=== PATIENT | male | born 1965 | race Caucasian/White ===

== ENCOUNTER 2025-05-04 11:59 | Emergency (ER) | payer OTHER, SELFPAY ==
--- NOTE | 2025-05-04 12:08 | ED_ITS ---
HPI - Skin/Abscess/Foreign Bdy General Chief complaint: Skin/Abscess/Foreign Body Stated complaint: rash Time Seen by Provider: 05/04/25 12:04 Patient presents to [facility] with complaints no changes to rash noted to left shoulder, chest, upper back, and now on face. Patient reports this started 4-5 days ago and was evaluated somewhere 2 days ago and they believe that this was an infection and started him on doxycycline and mupirocin ointment. Patient has been taking this medication and rashes that were worse. Patient reports pain as feeling like there are burning and fire ants crawling all over this area. Patient has noted some mild blistering but this areas are gone and now have scabs. Denies any vision changes, voice changes, hearing changes, numbness or tingling in arm. Related Data Home Medications ?Medication ?Instructions ?Recorded ?Confirmed ?Last Taken ?Type atorvastatin 80 mg tablet mg 05/04/25 Unknown History doxycycline hyclate 100 mg capsule mg 05/04/25 Unknown History losartan 25 mg tablet mg 05/04/25 Unknown History mupirocin 2 % topical ointment topical 05/04/25 Unknown History Allergies Allergy/AdvReac Type Severity Reaction Status Date / Time No Known Allergies Allergy Verified 05/04/25 12:19 Review of Systems Constitutional: Constitutional: Reports as per HPI, Denies chills, Denies fatigue, Denies fever(s) and Denies weakness Eyes: Eyes: Reports no additional eye complaints ENT: Reports as per HPI, Denies dysphagia, Denies vertigo, Denies dizziness, Denies nasal congestion and Denies sore throat Cardiovascular: Cardiovascular: Reports no additional cardiovascular complaints Respiratory: Respiratory: Reports no additional respiratory complaints Gastrointestinal: Gastrointestinal: Reports no additional gastrointestinal complaints Genitourinary: Genitourinary: Reports no additional male genitourinary complaints Musculoskeletal: Musculoskeletal: Reports as per HPI, Denies arthralgias, Denies joint swelling and Denies muscle cramps Integumentary/Breasts: Skin/Breast: Reports as per HPI, Reports pruritus and Reports rash Neurologic: Reports as per HPI, Denies headache(s), Denies numbness and Denies weakness Psychiatric: Psychiatric: Reports no additional psychiatric complaints Endocrine: Endocrine: Reports no additional endocrine complaints Hematologic/Lymphatic: Hematologic/Lymphatic: Reports no additional hematologic/lymphatic complaints Allergic/Immunologic: Allergic/Immunologic: Reports no additional all ergic/immunologic complaints Exam Const: General: healthy appearing and no acute distress Nutritional Appearance: well nourished Orientation/consciousness: patient oriented x3 Limitations: no limitations HENMT: Head: normal to inspection Ears: external ears normal and TM's normal bilaterally Face/Nose/Sinus: Normal external nose present Face and sinus: normal facial exam and sinuses nontender Mouth: Yes Normal oral and palatal mucosa present and Yes lip normal Throat: posterior oropharynx normal Eyes: Conjunctivae: conjunctivae normal Pupils: Equal, round and reactive pupils present EOM: EOMs intact bilaterally Direct Ophthalmoscopy: no photophobia Neck: Neck: normal visual inspection and no lymphadenopathy Resp: Effort & Inspection: normal respiratory effort Auscultation: clear to auscultation bilaterally Cardio: Rate: regular rate Rhythm: regular rhythm Skin: General skin exam: normal color Rashes: rash noted Wounds: no wounds Other: Diffuse vesicular rash noted over left side of chest, left shoulder, left upper back, left neck, and left scalp. Noted some vesicles crusted with clear drainage. No active drainage or streaking noted Neuro: General: patient oriented x3 and moves all extremities Speech: normal speech Gait exam (Neuro): Normal gait present Psych: Mental Status: mental status grossly normal Affect: normal affect Attitude: cooperative Course Course Level of Care: Express Care Visit MDM - Skin/Abscess/Foreign Bdy MDM Narrative Medical decision making narrative: Spoke with patient about diagnosis, more than likely shingles in nature. Continue the antibiotics due to areas of crusting possible secondary bacterial infection. Educated patient on several worsening symptoms that would need return to the ER follow-up. Discharge instructions reviewed with patient, as well as provided in writing per nursing staff. The instructions also include specific and strict return/GO TO THE ER as well as f/u information. All questions have been answered, and the patient deny any further questions with discharge and discharge plan. Differential Diagnosis Differential diagnosis: Likely dermatophytosis, urticaria, cellulitis, insect bites, impetigo and contact dermatitis Medical Records Attestation: I reviewed the patient's medical records. Discharge Plan Discharge Clinical Impression: Herpes zoster Patient Disposition: Home Condition: Stable Instructions: Antibiotic Form, Shingles (ED) Additional Instructions: The most important part of your care is follow up with Primary care provider. Take Benadryl 25-50 mg every 6 hours for itching. Take The acyclovir medication as directed. This is an antiviral medication. This will stop that virus from replicating and getting worse and then your body will work to get rid of the virus in symptoms you are having. Take the steroids starting today. This will help with inflammation and hopefully pain. May also use ibuprofen to help with pain and symptoms. Recommend continuing the doxycycline medication in the topical mupirocin as needed. Avoid hot showers, Take cool showers. Apply a good moisturizing lotion to the skin. Return to the ER for new or worsening symptoms such as shortness of breath, Changes in hearing in left ear, vision changes, numbness or tingling down the left arm. Patient Language: Vietnamese Prescriptions: New acyclovir 800 mg tablet 800 mg PO TID Qty: 21 0RF prednisone 50 mg tablet 50 mg PO DAILY Qty: 7 0RF No Action atorvastatin 80 mg tablet doxycycline hyclate 100 mg capsule losartan 25 mg tablet mupirocin 2 % ointment TOPICAL Follow-up/Referrals: PHYSICIAN NOT ON STAFF,NONSTAFF [Primary Care Provider] - Time of Disposition: 12:30
[2025-05-04 12:15] VITALS: BP 147/88; PULSE 82; RESP 16; TEMP 36.5; O2SAT 98
== END 2025-05-04 12:34 | disposition home or self-care (01) ==
PROVIDERS: Emergency Provider Nurse Practitioner Family
DX: B02.9 Zoster without complications (principal)
CPT/HCPCS: 99203; G0463